=== PATIENT | female | born 2000 | race American Indian/Alaskan Native ===

== ENCOUNTER 2022-05-08 10:06 | Emergency (ER) | payer MEDICAID ==
[2022-05-08] MEDS ORDERED: predniSONE 20 MG TAB PO ONE (14:49)
--- NOTE | 2022-05-08 15:03 | Emergency Department Report ---
ED General Adult HPI - General Chief complaint: Headache Stated complaint: CHRONIC LEG PAIN/SEVERE HEADACHE Time Seen by Provider: 05/08/22 14:29 Source: patient Mode of arrival: Ambulatory Limitations: No Limitations - History of Present Illness Initial comments: This is a 22-year-old female with a past medical history of migraine headaches who presents to the ED today complaining of bilateral leg pain times a couple months and the headache x2 to 3 days. Patient states that she has been having bilateral wants to pain in her legs for some time now. Patient states that she did not sustain any injuries. Patient states that she is also noted some minor bruising to her lower legs. Patient states that she takes no medication for her migraine headaches as well as her leg pain. Patient denies blurry vision, fever, chills, abdominal pain, extremity deformity, calf pain. - Related Data Previous Rx's Medication Instructions Recorded Last Taken Type Butalb/Acetamin/Caff 50-325-40 1 tab PO Q6HR PRN #20 tab 05/08/22 Unknown Rx [Fioricet 50-325-40] Naproxen [Naprosyn] 500 mg PO BID #30 tablet 05/08/22 Unknown Rx Allergies Allergy/AdvReac Type Severity Reaction Status Date / Time idoine Allergy Severe Anaphylaxis Uncoded 05/08/22 15:02 idione AdvReac Severe Anaphylaxis Uncoded 05/08/22 15:02 ED Review of Systems ROS: Stated complaint: CHRONIC LEG PAIN/SEVERE HEADACHE Other details as noted in HPI Comment: All other systems reviewed and negative ED Past Medical Hx - Past Medical History Previous Medical History?: No - Surgical History Past Surgical History?: No - Social History Smoking Status: Never Smoker - Medications Home Medications: Home Medications Medication Instructions Recorded Confirmed Last Taken Type Butalb/Acetamin/Caff 50-325-40 1 tab PO Q6HR PRN #20 tab 05/08/22 Unknown Rx [Fioricet 50-325-40] Naproxen [Naprosyn] 500 mg PO BID #30 tablet 05/08/22 Unknown Rx ED Physical Exam - General Limitations: No Limitations General appearance: alert, in no apparent distress - Head Head exam: Present: atraumatic, normocephalic - Eye Eye exam: Present: normal appearance, PERRL Pupils: Present: normal accommodation - ENT ENT exam: Present: normal exam, mucous membranes moist - Neck Neck exam: Present: normal inspection, full ROM. Absent: tenderness - Respiratory Respiratory exam: Present: normal lung sounds bilaterally. Absent: respiratory distress, wheezes, rales, rhonchi - Cardiovascular Cardiovascular Exam: Present: regular rate, normal rhythm. Absent: systolic murmur, diastolic murmur, rubs, gallop - GI/Abdominal GI/Abdominal exam: Present: soft, normal bowel sounds. Absent: distended - Extremities Exam Extremities exam: Present: normal inspection, full ROM. Absent: tenderness, normal capillary refill, joint swelling - Back Exam Back exam: Present: normal inspection - Neurological Exam Neurological exam: Present: alert, oriented X3, CN II-XII intact, normal gait - Psychiatric Psychiatric exam: Present: normal affect, normal mood - Skin Skin exam: Present: warm, dry, intact, normal color. Absent: rash, cyanosis, erythema, urticaria, abrasion ED Course Vital Signs 05/08/22 11:06 Temperature 98.0 F Pulse Rate 85 Respiratory 18 Rate Blood Pressure 138/74 O2 Sat by Pulse 99 Oximetry ED Medical Decision Making - Medical Decision Making 22-year-old female with no neurodeficit presents to ED with headache. Patient vital signs normalized in no acute or respiratory distress. Discussed follow-up with PCP/form stripper. Discussed neurology referral for management of headache. Patient understands instructions and will follow-up. Critical care attestation.: If time is entered above; I have spent that time in minutes in the direct care of this critically ill patient, excluding procedure time. ED Disposition Clinical Impression: Headache, Myalgia Disposition: HOME / SELF CARE / HOMELESS Is pt being admited?: No Does the pt Need Aspirin: No Condition: Stable Additional Instructions: Make sure to follow up with the primary care physician as discussed. Take all your medications as you've been prescribed. If you have any worsening symptoms or develop new symptoms please return to ED immediately. Prescriptions: Butalb/Acetamin/Caff 50-325-40 [Fioricet 50-325-40] 1 tab PO Q6HR PRN #20 tab PRN Reason: Headache Naproxen [Naprosyn] 500 mg PO BID #30 tablet Referrals: [facility] [Provider Group] - 3-5 Days Forms: Work/School Release Form(ED) Time of Disposition: 15:21
[2022-05-08] MEDS ORDERED: predniSONE 20 MG TAB PO SCH (15:30)
[2022-05-08 16:21] VITALS: BP 128/84
== END 2022-05-08 16:21 | disposition home or self-care (01) ==
LOC: ED 10:06
DX: R51.9 Headache, unspecified (principal); M79.10 Myalgia, unspecified site; Z91.041 Radiographic dye allergy status
CPT/HCPCS: 99282